=== PATIENT | female | born 1970 | race Caucasian/White ===

== ENCOUNTER 2017-02-23 07:35 | Day surgery (SDC) | payer BC ==
[~2017-02-23 07:35] MED LIST: ACETAMINOPHEN 1,000 MG/100 ML BTL IV ONE; CEFAZOLIN 1 Gram 1 GM/50 ML BAG IVPB ONE; FAMOTIDINE 20MG TABLET PO ONE; MECLIZINE 25 MG TABLET PO ONE; METOCLOPRAMIDE 10 MG TABLET PO ONE
[2017-02-23 07:54] LABS: BASO % 0.2 % (0-6); EOS % 1.3 % (0-6); GRAN % 64.5 % (47-80); HEMATOCRIT 38.6 % (35.0-47.0); HEMOGLOBIN 13.4 gm/dl (11.6-16.0); LYMPH % 26.3 % (16-45); MEAN CELL VOLUME 85.8 fl (81-97); MEAN CORPUSCULAR HEMOGLOBIN 29.8 pg (27-33); MEAN CORPUSCULAR HGB CONC 34.7 g/dl (32-36); MEAN PLATELET VOLUME 11.1 fl (7.4-10.4); MONO % 7.7 % (0-9); PLATELET COUNT 235 K/uL (130-400); RED CELL DISTRIBUTION WIDTH 12.9 % (11.5-14.5); WHITE BLOOD COUNT W/O DIFF 8.7 K/uL (4.2-12.2)
[2017-02-23] MEDS ORDERED: PROPOFOL 10 MG/ML VIAL IV ONE (15:49)
[2017-02-23] MEDS ORDERED: FENTANYL PF 100MCG/2ML VIAL IV ONE (15:49)
[2017-02-23] MEDS ORDERED: MIDAZOLAM HCL 2MG/2ML VIAL IV ONE (15:49)
[2017-02-23] MEDS ORDERED: ONDANSETRON HCL IV 4 MG/2 ML VIAL IVP ONE (15:49)
[2017-02-23] MEDS ORDERED: LIDOCAINE 2% MDV (20MG/ML) 20ML VIAL IV ONE (15:49)
[2017-02-23] MEDS ORDERED: KETOROLAC 30 MG/ML VIAL IVP ONE (15:49)
[2017-02-23] MEDS ORDERED: SEVOFLURANE 250 ML INH ONE (15:49)
[2017-02-23] MEDS ORDERED: BUPIVACAINE 0.25% W/EPI MPF 30ML VIAL IVP ONE (16:22)
[2017-02-23] MEDS ORDERED: HYDROCODONE/APAP 5/325MG TABLET PO ONE (16:22)
--- NOTE | 2017-02-24 14:31 | Operative Note ---
DATE OF SURGERY: 02/23/2017 Surgeon: Fritz Christopher DO PREOPERATIVE DIAGNOSIS: Incarcerated umbilical hernia. POSTOPERATIVE DIAGNOSIS: Incarcerated umbilical hernia. OPERATION: Open umbilical herniorrhaphy with mesh. Indication: The patient is a 46-year-old female who has had pain and bulging in her periumbilical region. On exam, she clearly had an incarcerated hernia. We did discuss repair, risks, benefits, and alternatives. Risks include bleeding, infection, acute or chronic pain, recurrence. She understood this fully. PROCEDURE: Therefore, after consent was signed and questions answered, the patient was taken to the operating room and placed in a supine position. General anesthesia was administered per the department of anesthesia. The patient's abdomen was prepped and draped in the usual fashion. At this time, adequate timeout was performed. She did receive preoperative antibiotics as well as DVT prophylaxis. At this time, the curvilinear region was anesthetized with a total of 8 mL of 0.25% Sensorcaine with epinephrine. A localized field block was also done. At this time, a curvilinear infraumbilical incision was made. This was carried down to the anterior rectus fascia. The umbilical stalk was then encircled and dissected free from the underlying hernia sac. Clean circumferential fascial edges were obtained. The hernia sac was then scored at its base, amputated, and passed off the field. This was not sent. The hernia defect measured about 1 to 1.5 cm. An 8 cm Ventralight mesh was obtained. This was placed in an intraperitoneal position. The upper extremity was sutured to the fascia loosely with 2-0 Vicryl. The tails overlap the fascia and were sutured in place as well. The fascial defect was then closed primarily with #1 Vicryl in interrupted fashion. The skin was tacked down to the fascia with 3-0 Vicryl. The skin was closed with a 4-0 Vicryl. Occlusive dressing was placed and she was taken to the recovery room in satisfactory condition. FINDINGS AT THE TIME OF SURGERY: Incarcerated umbilical hernia, repaired as above. CC: WHIT Stevens
== END 2017-02-23 10:38 | disposition home or self-care (01) ==
LOC: SUR 07:35
PROVIDERS: ATTEND Surgery
DX: K42.9 Umbilical hernia without obstruction or gangrene (principal)
CPT/HCPCS: 85025; 81025; 49587; 00840; J1885; J2405; J3010; J0690